=== PATIENT | female | born 1950 | race Caucasian/White ===

== ENCOUNTER 2017-06-25 11:48 | Day surgery (SDC) | payer MEDICARE, BC ==
[2017-06-25] MEDS ORDERED: Propofol 200 MG/20 ML SDV ONE (12:55)
[2017-06-25] MEDS ORDERED: fentaNYL 100 MCG/2 ML SDV ONE (12:55)
[2017-06-25] MEDS ORDERED: Midazolam 1 MG/ML 2 ML SDV ONE (12:55)
[2017-06-25] MEDS ORDERED: Lactated Ringers 1,000 ML IV SCH (13:00)
--- NOTE | 2017-06-25 18:32 | OR ---
DATE OF PROCEDURE: 06/25/2017 PREOPERATIVE DIAGNOSIS: Colon cancer screening. POSTOPERATIVE DIAGNOSIS: Small proximal right colon polyp. PROCEDURE PERFORMED: Colonoscopy to the cecum with biopsy resection of small proximal right colon polyp. SURGEON: Robert Lynn MD. ANESTHESIA: IV anesthesia with monitored anesthesia care. INDICATION: This 67-year-old white female is referred for a colonoscopy for colon cancer screening. Her last colonoscopic exam was done ten years ago. I counseled her for the procedure including risks and alternatives, and she gave her informed consent to proceed. DESCRIPTION OF PROCEDURE: The patient was placed in the left lateral decubitus position. IV anesthesia was administered by the Anesthesia Service. Time-out was held. A rectal exam was performed, which was unremarkable. The flexible video Olympus colonoscope was introduced through her anus, up her rectum, and out her colon all way to the cecum. Once the cecum was reached, the scope was slowly withdrawn, examining the mucosa throughout. In the proximal right colon we saw a small polyp which was removed with the biopsy forceps. The scope was withdrawn further with no other lesions noted. The scope was retroflexed in the rectum with the distal rectum appearing unremarkable. The scope was straightened and removed. She tolerated the procedure well. Robert Lynn MD /[id number]
== END 2017-06-25 14:28 | disposition home or self-care (01) ==
LOC: JP.SDS 11:48
PROVIDERS: ATTEND Surgery
DX: Z12.11 Encounter for screening for malignant neoplasm of colon (principal); K63.5 Polyp of colon; I10 Essential (primary) hypertension; E66.9 Obesity, unspecified; Z96.652 Presence of left artificial knee joint; Z96.642 Presence of left artificial hip joint; Z90.49 Acquired absence of other specified parts of digestive tract; Z90.710 Acquired absence of both cervix and uterus; Z87.891 Personal history of nicotine dependence; Z68.30 Body mass index [BMI] 30.0-30.9, adult
CPT/HCPCS: 45380; 88305; J2250; J2704; J3010; J7120